=== PATIENT | female | born 1990 | race Caucasian/White ===

== ENCOUNTER 2018-04-09 17:25 | Emergency (ER) | payer BC ==
[2018-04-09] MEDS ORDERED: Lidocaine 1% 50 ML MDV INJECT ONE (17:52)
--- NOTE | 2018-04-09 18:14 | EDM.PDOC ---
ED HPI GENERAL MEDICAL PROBLEM - General Chief Complaint: Bite:Animal, Insect Stated Complaint: ANIMAL BITE Time Seen by Provider: 04/09/18 17:41 Source of Information: Reports: Patient History Limitations: Reports: No Limitations - History of Present Illness INITIAL COMMENTS - FREE TEXT/NARRATIVE: 27-year-old female presents for evaluation and treatment of injuries sustained while breaking up a dog bite. Patient reports that these were her 2 dogs. States they were both pit bulls. This occurred around 1430 today. States that they were fighting and she attempted to break up the fight. She has multiple abrasions and several lacerations to her bilateral hands and forearms. She reports that the dogs immunizations including rabies are up-to-date. She reports that her tetanus is up-to-date. Right Hand Pain Score (Numeric/FACES): 5 - Related Data Allergies Allergy/AdvReac Type Severity Reaction Status Date / Time amoxicillin Allergy Rash Verified 04/09/18 17:40 Sulfa (Sulfonamide Allergy Cannot Verified 04/09/18 17:40 Antibiotics) Remember Home Meds: Home Meds Acetaminophen/HYDROcodone [Keene 325-5 MG] 1 tab PO Q6H PRN #12 tablet 04/09/18 [Rx] Control 1 tab PO DAILY 04/09/18 [History] Doxycycline [Vibramycin] 100 mg PO BID #20 cap 04/09/18 [Rx] metroNIDAZOLE [Flagyl] 500 mg PO Q8H #30 tab 04/09/18 [Rx] ED ROS GENERAL - Review of Systems Review Of Systems: See Below Musculoskeletal: Reports: Hand Pain (bilateral, right > left) Skin: Reports: Wound (bilateral hands and forearms multiple abrasions and laceration) Neurological: Denies: Numbness, Tingling ED EXAM, ANIMAL BITE - Physical Exam Exam: See Below Exam Limited By: No Limitations General Appearance: Alert, WD/WN, No Apparent Distress Respiratory/Chest: No Respiratory Distress Cardiovascular: Normal Peripheral Pulses Peripheral Pulses: 2+: Radial (L), Radial (R) Extremities: Normal Range of Motion (reports pain with ROM of the right hand; ) , Other (approximately 1cm subcutaneous laceartion to the dorsal right hand, approximately 2cm subcutaneous laceration to the anterior medial left proximal forearm ; multiple superficial lacerations and abrasions to the bilteral hands and forearms) Neurological: Alert, Oriented, Normal Cognition Psychiatric: Normal Affect, Normal Mood Skin Exam: Normal Color, Warm/Dry ED ANIMAL BITE PROCEDURES - Laceration/Wound Repair Left Anterior Elbow Lac/Wound Length In cm: 2 Appearance: Subcutaneous, Linear Distal NVT: Neuro & Vascular Intact, No Tendon Injury Anesthetic Type: Local Local Anesthesia - Lidocaine (Xylocaine): 1% Plain Local Anesthetic Volume: 2cc Exploration/Debridement/Repair: Wound Explored, No Foreign Material Found Closed With: Sutures Suture Size: other (5-0) # of Sutures: 3 Suture Type: Nylon, Interrupted, Simple Sterile Dressing Applied: Nurse Tetanus Status Addressed: Yes Complications: No Right Dorsal Hand Lac/Wound Length In cm: 1.5 Appearance: Subcutaneous, Linear Distal NVT: Neuro & Vascular Intact, No Tendon Injury Anesthetic Type: Local Local Anesthesia - Lidocaine (Xylocaine): 1% Plain Local Anesthetic Volume: 2cc Exploration/Debridement/Repair: Wound Explored, No Foreign Material Found Closed With: Sutures Suture Size: other (5-0) # of Sutures: 2 Suture Type: Nylon, Interrupted, Simple Sterile Dressing Applied: Nurse Tetanus Status Addressed: Yes Complications: No Course - Vital Signs Last Recorded V/S: Last Vital Signs Temp 99.3 F 04/09/18 17:36 Pulse 77 04/09/18 17:36 Resp 17 04/09/18 17:36 BP 115/72 04/09/18 17:36 Pulse Ox 98 04/09/18 17:36 - Orders/Labs/Meds Meds: Medications Discontinued Medications Generic Name Dose Route Start Last Admin Trade Name Emily PRN Reason Stop Dose Admin Ibuprofen 800 mg 04/09/18 18:37 04/09/18 18:59 Motrin PO 04/09/18 18:38 800 mg ONETIME ONE Administration Lidocaine HCl 50 ml 04/09/18 17:52 04/09/18 19:00 Xylocaine 1% INJECT 04/09/18 17:53 50 ml ONETIME ONE Administration - Re-Assessments/Exams Free Text/Narrative Re-Assessment/Exam: 04/09/18 19:10 Wound to the right dorsal hand closed with 2 sutures. Wound to the left, proximal, medial anterior forearm closed with 3 sutures. Patient tolerated well. She reports her tetanus is up-to-date. Will put on Flagyl and doxycycline as she has an allergy to amoxicillin. Follow up in the clinic for suture removal and for recheck. She is to return to the ER for symptoms change or worsen. Discharge instructions as documented. Departure - Departure Time of Disposition: 19:10 Disposition: Home, Self-Care 01 Condition: Fair Clinical Impression: Laceration, Dog bite - Discharge Information *PRESCRIPTION DRUG MONITORING PROGRAM REVIEWED*: No *COPY OF PRESCRIPTION DRUG MONITORING REPORT IN PATIENT BALA: No Prescriptions: Acetaminophen/HYDROcodone [Keene 325-5 MG] 1 tab PO Q6H PRN #12 tablet PRN Reason: Pain Doxycycline [Vibramycin] 100 mg PO BID #20 cap metroNIDAZOLE [Flagyl] 500 mg PO Q8H #30 tab Instructions: Animal Bite, [id number], Laceration Care, Adult Referrals: Kirstin Retana PA [Primary Care Provider] - Forms: ED Department Discharge, ED Return to Work/School Form Additional Instructions: taek The doxycycline 1 tab twice a day for 10 days. This medication can cause photosensitivity. Recommend avoiding the sunlight and if you are in the sun make sure you wear sunscreen. Flagyl 1 tab 3 times a day for 10 days. [id number] Tylenol or Motrin as needed for pain. Do not take more than 3200 mg of ibuprofen from all sources in 1 day. Do not take more than 4 g of Tylenol from all sources in 1 day. For pain not relieved by Tylenol or Motrin you may take Keene 1 tab every 6 hours as needed for pain. Keene is habit- forming, take as little as needed to control your pain. Do not drive or operate machinery within 12 hours of taking Keene. There is 325 mg of Tylenol in each Keene tab. Note given for work. Follow-up with your primary care provider in 10 days to have the sutures removed. call [phone] to schedule with Kirstin. Wash the wound with gentle soap and water. Keep covered in situations where the wounds may become dirty or contaminated. Monitor the wound for signs of infection such as increased swelling, pus or redness. Present to the clinic or the ER should these develop. Please return to the ER if your symptoms change or worsen.
[2018-04-09] MEDS ORDERED: Ibuprofen 800 MG Tab PO ONE (18:37)
== END 2018-04-09 19:30 | disposition home or self-care (01) ==
LOC: JD.ED 17:25
DX: S61.452A Open bite of left hand, initial encounter (principal); S61.451A Open bite of right hand, initial encounter; S51.852A Open bite of left forearm, initial encounter; S51.851A Open bite of right forearm, initial encounter; W54.0XXA Bitten by dog, initial encounter; Z88.1 Allergy status to other antibiotic agents; Z88.2 Allergy status to sulfonamides; Z79.899 Other long term (current) drug therapy
CPT/HCPCS: 12002; 99284; A9270; 12001; 99283-25

== ENCOUNTER 2020-08-19 19:32 | Day surgery (SDC) | payer BC, OTHER ==
[2020-08-19] MEDS ORDERED: Ondansetron 4 MG/2 ML SDV IVPUSH ONE (20:23)
[2020-08-19] MEDS ORDERED: HYDROmorphone 0.5 MG/0.5 ML Syringe IVPUSH ONE ×2 (20:23→23:55)
[2020-08-19] MEDS ORDERED: Sodium Chloride 0.9% 1,000 ML IV SCH (20:30)
--- NOTE | 2020-08-19 20:40 | EDM.PDOC ---
ED HPI GENERAL MEDICAL PROBLEM - General Chief Complaint: Genitourinary Problem Stated Complaint: extreme lower pelvic pain sent from [place] Time Seen by Provider: 08/19/20 20:04 Source of Information: Reports: Patient History Limitations: Reports: No Limitations - History of Present Illness INITIAL COMMENTS - FREE TEXT/NARRATIVE: Ms. Lara is a very pleasant 30-year-old woman who now presents to the ED with sharp midline pelvic pain that she states developed this morning. The pain has been relatively constant, although she took some ibuprofen, which helped to reduce the pain for several hours, however, it then became much more severe around 18:00 this evening. She feels better if she is sitting, but worse if she walks, takes a deep breath, or tries to lie supine. No prior similar symptoms. The patient states that she went to the walk-in clinic, but was sent here without any tests being ordered. The patient has not had any vaginal bleeding. She is not on control pills. Her LMP was 07/17/2020. No prior pregnancies. Her last oral intake was around 18:30 this evening. Here in the ED, the patient is found to be hemodynamically stable, afebrile, sat urating 100% on room air. Prior to this morning, the patient denies having a recent fever, chills, sore throat, ear pain, nasal or sinus congestion, cough, dyspnea, chest pain, palpitations, nausea, vomiting, constipation, diarrhea, abdominal pain, urinary symptoms, recent weight gain or weight loss, recent bloody bowel movements or black bowel movements, recent joint aches, headaches, or rashes. The patient's PCP is either JAN Ferrari, or JAN Hansen. She already received an influenza vaccine this season. Pelvic Pain Score (Numeric/FACES): 8 - Related Data Allergies Allergy/AdvReac Type Severity Reaction Status Date / Time amoxicillin Allergy Rash Verified 04/09/18 17:40 Sulfa (Sulfonamide Allergy Cannot Verified 04/09/18 17:40 Antibiotics) Remember Home Meds: Home Meds Control 1 tab PO DAILY 04/09/18 [History] Past Medical History - Past Surgical History HEENT Surgical History: Reports: Oral Surgery (dental extractions) Social & Family History - Tobacco Use Tobacco Use Status *Q: Never Tobacco User - Alcohol Use Alcohol Use History: Yes Alcohol Use Frequency: Rarely - Recreational Drug Use Recreational Drug Use: No - Living Situation & Occupation Living situation: Reports: Single, with Significant Other (Boyfriend) 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 ED EXAM, GENERAL - Physical Exam Exam: See Below Exam Limited By: No Limitations General Appearance: Alert, WD/WN, Mild Distress (appears uncomfortable, pa rticularly when placing supine) Eye Exam: Bilateral Eye: EOMI, Normal Inspection Ears: Normal External Exam, Hearing Grossly Normal Nose: Normal Inspection Throat/Mouth: Normal Inspection, Normal Lips, Normal Voice, No Airway Compromise Head: Atraumatic, Normocephalic Neck: Normal Inspection, Full Range of Motion Respiratory/Chest: No Respiratory Distress, Lungs Clear, Normal Breath Sounds, No Accessory Muscle Use Cardiovascular: Normal Peripheral Pulses, Regular Rate, Rhythm, No Edema, No Gallop, No JVD, No Murmur, No Rub Peripheral Pulses: 3+: Radial (L), Radial (R) GI/Abdominal: Normal Bowel Sounds, Soft, No Organomegaly, No Distention, No Abnormal Bruit, No Mass, Tender (very, to the central pelvis/suprapubic region only, minimal tenderness to the left and right lower quadrants, and no actual tenderness to the upper abdomen, including the right upper quadrant, despite the patient feeling pain in that area.) Back Exam: Normal Inspection, Full Range of Motion. No: CVA Tenderness (L), CVA Tenderness (R) Extremities: Normal Inspection, Normal Range of Motion, No Pedal Edema, Normal Capillary Refill Neurological: Alert, Oriented, Normal Cognition, No Motor/Sensory Deficits Psychiatric: Normal Affect Skin Exam: Warm, Dry, Intact, Normal Color, No Rash Course - Vital Signs Last Recorded V/S: Last Vital Signs Temp 37.1 C 08/19/20 19:48 Pulse 61 08/19/20 19:48 Resp 20 08/19/20 19:48 BP 119/69 08/19/20 19:48 Pulse Ox 100 08/19/20 19:48 Orthostatic Blood Pressure [ 97/56 Sitting] - Orders/Labs/Meds Orders: Active Orders 24 hr Category Date Time Status Admission Status [Patient Status] [ADT] Routine ADT 08/19/20 22:06 Active Orthostatic Vital Signs [RC] STAT Care 08/19/20 20:27 Active Transvaginal Non OB [US] Stat Exams 08/19/20 20:22 Taken TYPE AND SCREEN [BBK] Stat Lab 08/19/20 20:30 Received Sodium Chloride 0.9% [Normal Saline] 1,000 ml Med 08/19/20 21:45 Active IV ONETIME Schedule Procedure [COMM] Stat Oth 08/19/20 22:06 Ordered Medication Orders Sodium Chloride (Normal Saline) 1,000 mls @ 999 mls/hr IV ONETIME ONE Stop: 08/19/20 22:45 Labs: Laboratory Tests 08/19/20 08/19/20 08/19/20 Range/Units 20:02 20:30 20:30 WBC 9.74 (3.98-10.04) K/mm3 RBC 3.85 L (3.98-5.22) M/mm3 Hgb 12.2 (11.2-15.7) gm/dl Hct 36.7 (34.1-44.9) % MCV 95.3 H (79.4-94.8) fl MCH 31.7 (25.6-32.2) pg MCHC 33.2 (32.2-35.5) g/dl RDW Std Deviation 40.9 (36.4-46.3) fL Plt Count 252 (182-369) K/mm3 MPV 9.3 L (9.4-12.3) fl Neutrophils % (Manual) 75 H (40-60) % Band Neutrophils % 0 (0-10) % Lymphocytes % (Manual) 22 (20-40) % Atypical Lymphs % 0 % Monocytes % (Manual) 3 (2-10) % Eosinophils % (Manual) 0 L (0.7-5.8) % Basophils % (Manual) 0 L (0.1-1.2) Platelet Estimate Adequate RBC Morph Comment Normal Sodium 139 (136-145) mEq/L Potassium 3.8 (3.5-5.1) mEq/L Chloride 101 (98-107) mEq/L Carbon Dioxide 27 (21-32) mEq/L Anion Gap 14.8 (5-15) BUN 14 (7-18) mg/dL Creatinine 0.7 (0.55-1.02) mg/dL Est Cr Clr Drug Dosing 92.10 mL/min Estimated GFR (MDRD) > 60 (>60) mL/min BUN/Creatinine Ratio 20.0 H (14-18) Glucose 105 (74-106) mg/dL Calcium 8.9 (8.5-10.1) mg/dL Magnesium 1.9 (1.8-2.4) mg/dl Total Bilirubin 0.3 (0.2-1.0) mg/dL AST 56 H (15-37) U/L ALT 63 H (14-59) U/L Alkaline Phosphatase 60 (46-116) U/L Total Protein 7.1 (6.4-8.2) g/dl Albumin 3.9 (3.4-5.0) g/dl Globulin 3.2 gm/dL Albumin/Globulin Ratio 1.2 (1-2) HCG, Quant mIU/mL Urine Color Yellow (Yellow) Urine Appearance Clear (Clear) Urine pH 7.0 (5.0-8.0) Ur Specific [place] 1.025 (1.005-1.030) Urine Protein Negative (Negative) Urine Glucose (UA) Negative (Negative) Urine Ketones Negative (Negative) Urine Occult Blood Negative (Negative) Urine Nitrite Negative (Negative) Urine Bilirubin Negative (Negative) Urine Urobilinogen 0.2 (0.2-1.0) Ur Leukocyte Esterase Negative (Negative) Urine RBC 0-5 (0-5) /hpf Urine WBC 0-5 (0-5) /hpf Ur Squamous Epith Cells 0-5 (0-5) /hpf Urine Bacteria Few (FEW) /hpf Urine Mucus Few (FEW) /hpf 08/19/20 Range/Units 20:30 WBC (3.98-10.04) K/mm3 RBC (3.98-5.22) M/mm3 Hgb (11.2-15.7) gm/dl Hct (34.1-44.9) % MCV (79.4-94.8) fl MCH (25.6-32.2) pg MCHC (32.2-35.5) g/dl RDW Std Deviation (36.4-46.3) fL Plt Count (182-369) K/mm3 MPV (9.4-12.3) fl Neutrophils % (Manual) (40-60) % Band Neutrophils % (0-10) % Lymphocytes % (Manual) (20-40) % Atypical Lymphs % % Monocytes % (Manual) (2-10) % Eosinophils % (Manual) (0.7-5.8) % Basophils % (Manual) (0.1-1.2) Platelet Estimate RBC Morph Comment Sodium (136-145) mEq/L Potassium (3.5-5.1) mEq/L Chloride (98-107) mEq/L Carbon Dioxide (21-32) mEq/L Anion Gap (5-15) BUN (7-18) mg/dL Creatinine (0.55-1.02) mg/dL Est Cr Clr Drug Dosing mL/min Estimated GFR (MDRD) (>60) mL/min BUN/Creatinine Ratio (14-18) Glucose (74-106) mg/dL Calcium (8.5-10.1) mg/dL Magnesium (1.8-2.4) mg/dl Total Bilirubin (0.2-1.0) mg/dL AST (15-37) U/L ALT (14-59) U/L Alkaline Phosphatase (46-116) U/L Total Protein (6.4-8.2) g/dl Albumin (3.4-5.0) g/dl Globulin gm/dL Albumin/Globulin Ratio (1-2) HCG, Quant 7959.0 mIU/mL Urine Color (Yellow) Urine Appearance (Clear) Urine pH (5.0-8.0) Ur Specific [place] (1.005-1.030) Urine Protein (Negative) Urine Glucose (UA) (Negative) Urine Ketones (Negative) Urine Occult Blood (Negative) Urine Nitrite (Negative) Urine Bilirubin (Negative) Urine Urobilinogen (0.2-1.0) Ur Leukocyte Esterase (Negative) Urine RBC (0-5) /hpf Urine WBC (0-5) /hpf Ur Squamous Epith Cells (0-5) /hpf Urine Bacteria (FEW) /hpf Urine Mucus (FEW) /hpf Meds: Medications Generic Name Dose Route Start Last Admin Trade Name Freq PRN Reason Stop Dose Admin Sodium Chloride 1,000 mls @ 999 mls/hr 08/19/20 21:45 Normal Saline IV 08/19/20 22:45 ONETIME ONE Discontinued Medications Generic Name Dose Route Start Last Admin Trade Name Freq PRN Reason Stop Dose Admin Hydromorphone HCl 0.5 mg 08/19/20 20:23 08/19/20 20:36 Dilaudid IVPUSH 08/19/20 20:24 0.5 mg ONETIME ONE Administration Sodium Chloride 1,000 mls @ 150 mls/hr 08/19/20 20:30 08/19/20 21:53 Normal Saline IV 999 mls/hr ASDIRECTED JOSE Infusion Ondansetron HCl 4 mg 08/19/20 20:23 08/19/20 20:35 Zofran IVPUSH 08/19/20 20:24 4 mg ONETIME ONE Administration - Re-Assessments/Exams Free Text/Narrative Re-Assessment/Exam: 08/19/20 20:26 As above, the patient developed central pelvic pain this morning, which improved for a while after she took some ibuprofen, but then got much worse around 18:00 this evening. Her pain is made much worse if she lies back, radiating to her right upper quadrant and right shoulder. The patient had difficulty lying back for an examination, and I had to reassure her that it would only be for a short time. She has tenderness in her pelvis, but not in her right upper quadrant. I am concerned that she has a ruptured ovarian cyst and have therefore ordered a stat pelvic ultrasound to evaluate, along with orthostatics, several blood tests, and a urinalysis by clean-catch. In the meantime, the patient will be given IV Dilaudid, IV Zofran, and IV fluid. 08/19/20 21:43 I am told by Olivia SANCHEZ that the patient was too uncomfortable to lie supine. Her BP is 97/56 with a HR of 73 while sitting. She was apparently too lightheaded to stand up. Her CBC is unremarkable. Her CMP is remarkable for an AST/ALT slightly elevated at 56/63, respectively, with the remainder of her CMP being unremarkable. Her magnesium level is within normal limits at 1.9. Her quantitative hCG is elevated at 7959. Results of her pelvic ultrasound are still pending. Based on the above, I am very concerned about a ruptured ectopic . I have canceled the NS at 150 mL/h and ordered an NS bolus. I will also order a type and screen. Because there is a good chance that the patient will need to go to the OR, I ordered a swab for the SARS-CoV-2 virus, however, I am notified by Olivia SANCHEZ that the patient was tested just yesterday, 08/18/2020, with a negative test result, and documentation of such on her phone. Under these circumstances, I don't believe we need to repeat the test. 08/19/20 21:57 Transvaginal ultrasound is read by [facility] as "No sonographic evidence of ovarian torsion. "There appears to be a large confluent soft tissue lesion posterior to the uterus extending into the adnexal spaces bilaterally measuring approximately 9.3 x 3.4 x 8.6 cm. This precludes confident detection and characterization of the ovaries. Recommend contrast-enhanced MRI of the pelvis for further evaluation." 08/19/20 22:[address] Santos at 21:58. She agrees that the patient's presentation is concerning for a ruptured ectopic . She asked that we call the OR crew in. Coincidentally, Dr. De Leon is here in the ED for a similar situation witha different patient, and will likely need to take his patient to the OR, as well. At present, Dr. Santos asked that we make the OR charge nurse aware that a second Occupational Health Professional may need to be called in, but that decision will be made after she evaluates the patient. 08/19/20 22:29 Dr. Santos has evaluated the patient and intends to take her to the operating room. Departure - Departure Time of Disposition: 22:30 Disposition: Admitted As Inpatient 65 Condition: Fair Clinical Impression: Ruptured ectopic - Discharge Information *PRESCRIPTION DRUG MONITORING PROGRAM REVIEWED*: Not Applicable *COPY OF PRESCRIPTION DRUG MONITORING REPORT IN PATIENT BALA: Not Applicable Sepsis Event Note (ED) - Evaluation Sepsis Screening Result: No Definite Risk - Focused Exam Vital Signs: Vital Signs Temp Pulse Resp BP Pulse Ox 08/19/20 19:48 37.1 C 61 20 119/69 100 - My Orders Last 24 Hours: My Active Orders 08/19/20 20:22 Transvaginal Non OB [US] Stat 08/19/20 20:27 Orthostatic Vital Signs [RC] STAT 08/19/20 20:30 TYPE AND SCREEN [BBK] Stat 08/19/20 21:45 Sodium Chloride 0.9% [Normal Saline] 1,000 ml IV ONETIME - Assessment/Plan Last 24 Hours: My Active Orders 08/19/20 20:22 Transvaginal Non OB [US] Stat 08/19/20 20:27 Orthostatic Vital Signs [RC] STAT 08/19/20 20:30 TYPE AND SCREEN [BBK] Stat 08/19/20 21:45 Sodium Chloride 0.9% [Normal Saline] 1,000 ml IV ONETIME
[2020-08-19] MEDS ORDERED: Sodium Chloride 0.9% 1,000 ML IV ONE (21:45)
[2020-08-19] MEDS ORDERED: ceFAZolin 2 GM in Premix Bag 1 BAG IV ONE (22:43)
--- NOTE | 2020-08-19 22:43 | PCM.HP.2 ---
H&P History of Present Illness - General Date of Service: 08/19/20 Admit Problem/Dx: Admission Diagnosis/Problem Admission Diagnosis/Problem Ectopic Source of Information: Patient History Limitations: Reports: No Limitations - History of Present Illness Initial Comments - Free Text/Narative: Patient is a 30 y/o who presented to the ER today with one day fo abdominal pain. Prior to today patient did not realize she was . 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 Not using a method of contraception. Noted pain this AM which then resolved slightly, then worsened around noon. Tried to manage on her own, but this PM pain much worse. ER evaluation has shown hCG . 7,000 and TVUS with "mass posterior to uterus" and no findings of IUP. Pelvic Pain Score (Numeric/FACES): 8 - Related Data Allergies/Adverse Reactions: Allergies Allergy/AdvReac Type Severity Reaction Status Date / Time amoxicillin Allergy Rash Verified 04/09/18 17:40 Sulfa (Sulfonamide Allergy Cannot Verified 04/09/18 17:40 Antibiotics) Remember Home Medications: Home Meds Control 1 tab PO DAILY 04/09/18 [History] Past Medical History - Past Health History Medical/Surgical History: Denies Medical/Surgical History - Past Surgical History HEENT Surgical History: Reports: Oral Surgery (dental extractions) Social & Family History - Family History Family Medical History: No Pertinent Family History - Tobacco Use Tobacco Use Status *Q: Never Tobacco User Second Hand Smoke Exposure: No - Caffeine Use Caffeine Use: Reports: None - Alcohol Use Alcohol Use History: No - Recreational Drug Use Recreational Drug Use: No - Living Situation & Occupation Living situation: Reports: Single, with Significant Other (Boyfriend) 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[employer]) H&P Review of Systems - Review of Systems: Review Of Systems: See Below General: Reports: No Symptoms Pulmonary: Reports: No Symptoms Cardiovascular: Reports: No Symptoms Gastrointestinal: Reports: Abdominal Pain, Anorexia Genitourinary: Reports: No Symptoms Musculoskeletal: Reports: No Symptoms Psychiatric: Reports: No Symptoms Neurological: Reports: No Symptoms Exam - Exam Exam: See Below - Vital Signs Vital Signs: Last Vital Signs Temp 37.1 C 08/19/20 19:48 Pulse 61 08/19/20 19:48 Resp 20 08/19/20 19:48 BP 119/69 08/19/20 19:48 Pulse Ox 100 08/19/20 19:48 Orthostatic Blood Pressure [ 97/56 Sitting] Weight: 63.957 kg - Exam General: Alert, Oriented, Cooperative, Mild Distress Lungs: Clear to Auscultation Cardiovascular: Regular Rate GI/Abdominal Exam: Normal Bowel Sounds, Tender (mostly in lower abdomen over bladder ). No: Guarding Extremities: Normal Inspection Skin: Warm, Dry, Intact - Patient Data Lab Results Last 24 hrs: Laboratory Results - last 24 hr 08/19/20 08/19/20 08/19/20 Range/Units 20:02 20:30 20:30 WBC 9.74 (3.98-10.04) K/mm3 RBC 3.85 L (3.98-5.22) M/mm3 Hgb 12.2 (11.2-15.7) gm/dl Hct 36.7 (34.1-44.9) % MCV 95.3 H (79.4-94.8) fl MCH 31.7 (25.6-32.2) pg MCHC 33.2 (32.2-35.5) g/dl RDW Std Deviation 40.9 (36.4-46.3) fL Plt Count 252 (182-369) K/mm3 MPV 9.3 L (9.4-12.3) fl Neutrophils % (Manual) 75 H (40-60) % Band Neutrophils % 0 (0-10) % Lymphocytes % (Manual) 22 (20-40) % Atypical Lymphs % 0 % Monocytes % (Manual) 3 (2-10) % Eosinophils % (Manual) 0 L (0.7-5.8) % Basophils % (Manual) 0 L (0.1-1.2) Platelet Estimate Adequate RBC Morph Comment Normal Sodium 139 (136-145) mEq/L Potassium 3.8 (3.5-5.1) mEq/L Chloride 101 (98-107) mEq/L Carbon Dioxide 27 (21-32) mEq/L Anion Gap 14.8 (5-15) BUN 14 (7-18) mg/dL Creatinine 0.7 (0.55-1.02) mg/dL Est Cr Clr Drug Dosing 92.10 mL/min Estimated GFR (MDRD) > 60 (>60) mL/min BUN/Creatinine Ratio 20.0 H (14-18) Glucose 105 (74-106) mg/dL Calcium 8.9 (8.5-10.1) mg/dL Magnesium 1.9 (1.8-2.4) mg/dl Total Bilirubin 0.3 (0.2-1.0) mg/dL AST 56 H (15-37) U/L ALT 63 H (14-59) U/L Alkaline Phosphatase 60 (46-116) U/L Total Protein 7.1 (6.4-8.2) g/dl Albumin 3.9 (3.4-5.0) g/dl Globulin 3.2 gm/dL Albumin/Globulin Ratio 1.2 (1-2) HCG, Quant mIU/mL Urine Color Yellow (Yellow) Urine Appearance Clear (Clear) Urine pH 7.0 (5.0-8.0) Ur Specific [place] 1.025 (1.005-1.030) Urine Protein Negative (Negative) Urine Glucose (UA) Negative (Negative) Urine Ketones Negative (Negative) Urine Occult Blood Negative (Negative) Urine Nitrite Negative (Negative) Urine Bilirubin Negative (Negative) Urine Urobilinogen 0.2 (0.2-1.0) Ur Leukocyte Esterase Negative (Negative) Urine RBC 0-5 (0-5) /hpf Urine WBC 0-5 (0-5) /hpf Ur Squamous Epith Cells 0-5 (0-5) /hpf Urine Bacteria Few (FEW) /hpf Urine Mucus Few (FEW) /hpf 08/19/20 Range/Units 20:30 WBC (3.98-10.04) K/mm3 RBC (3.98-5.22) M/mm3 Hgb (11.2-15.7) gm/dl Hct (34.1-44.9) % MCV (79.4-94.8) fl MCH (25.6-32.2) pg MCHC (32.2-35.5) g/dl RDW Std Deviation (36.4-46.3) fL Plt Count (182-369) K/mm3 MPV (9.4-12.3) fl Neutrophils % (Manual) (40-60) % Band Neutrophils % (0-10) % Lymphocytes % (Manual) (20-40) % Atypical Lymphs % % Monocytes % (Manual) (2-10) % Eosinophils % (Manual) (0.7-5.8) % Basophils % (Manual) (0.1-1.2) Platelet Estimate RBC Morph Comment Sodium (136-145) mEq/L Potassium (3.5-5.1) mEq/L Chloride (98-107) mEq/L Carbon Dioxide (21-32) mEq/L Anion Gap (5-15) BUN (7-18) mg/dL Creatinine (0.55-1.02) mg/dL Est Cr Clr Drug Dosing mL/min Estimated GFR (MDRD) (>60) mL/min BUN/Creatinine Ratio (14-18) Glucose (74-106) mg/dL Calcium (8.5-10.1) mg/dL Magnesium (1.8-2.4) mg/dl Total Bilirubin (0.2-1.0) mg/dL AST (15-37) U/L ALT (14-59) U/L Alkaline Phosphatase (46-116) U/L Total Protein (6.4-8.2) g/dl Albumin (3.4-5.0) g/dl Globulin gm/dL Albumin/Globulin Ratio (1-2) HCG, Quant 7959.0 mIU/mL Urine Color (Yellow) Urine Appearance (Clear) Urine pH (5.0-8.0) Ur Specific [place] (1.005-1.030) Urine Protein (Negative) Urine Glucose (UA) (Negative) Urine Ketones (Negative) Urine Occult Blood (Negative) Urine Nitrite (Negative) Urine Bilirubin (Negative) Urine Urobilinogen (0.2-1.0) Ur Leukocyte Esterase (Negative) Urine RBC (0-5) /hpf Urine WBC (0-5) /hpf Ur Squamous Epith Cells (0-5) /hpf Urine Bacteria (FEW) /hpf Urine Mucus (FEW) /hpf Result Diagrams: 08/19/20 20:30 08/19/20 20:30 Sepsis Event Note - Evaluation Sepsis Screening Result: No Definite Risk - Focused Exam Vital Signs: Vital Signs Temp Pulse Resp BP Pulse Ox 08/19/20 19:48 37.1 C 61 20 119/69 100 - Problem List (1) Ruptured ectopic SNOMED Code(s): 74626437 ICD Code: O00.90 - UNSPECIFIED ECTOPIC WITHOUT INTRAUTERINE Status: Acute Current Visit: Yes Problem List Initiated/Reviewed/Updated: Yes Orders Last 24hrs: Active Orders 24 hr Category Date Time Status Admission Status [Patient Status] [ADT] Routine ADT 08/19/20 22:06 Active Orthostatic Vital Signs [RC] STAT Care 08/19/20 20:27 Active Transvaginal Non OB [US] Stat Exams 08/19/20 20:22 Taken TYPE AND SCREEN [BBK] Stat Lab 08/19/20 20:30 Received Sodium Chloride 0.9% [Normal Saline] 1,000 ml Med 08/19/20 21:45 Active IV ONETIME Schedule Procedure [COMM] Stat Oth 08/19/20 22:06 Ordered Medication Orders Sodium Chloride (Normal Saline) 1,000 mls @ 999 mls/hr IV ONETIME ONE Stop: 08/19/20 22:45 Assessment/Plan Comment:: Patient with likely ectopic given HCG value and US findings of now IUP. Recommend diagnostic laparoscopy, removal of ectopic. Discussed possibility of salpingectomy, oophorectomy, and even in rare cases hysterectomy. Also reviewed possibility of conversion to open procedure. She expressed understanding. Consent reviewed/signed * Labs done, T&S pending * Diana BACHOR * OR crew notified
[2020-08-19] MEDS ORDERED: Lactated Ringers 1,000 ML IV SCH (23:00)
--- NOTE | 2020-08-19 23:00 | PCM.PREANE ---
Preanesthetic Assessment - Procedure Proposed Procedure: laparoscopy - Anesthesia/Transfusion/Family Hx Anesthesia History: Prior Anesthesia Without Reaction Family History of Anesthesia Reaction: No Transfusion History: No Prior Transfusion(s) - Review of Systems General: Weakness, Chills (started 6 pm) Pulmonary: No Symptoms Cardiovascular: No Symptoms Gastrointestinal: Abdominal Pain (this am about 8 am), Nausea Neurological: No Symptoms Other: Reports: None - Physical Assessment NPO Status Date: 08/19/20 NPO Status Time: 18:00 Vital Signs: Last Vital Signs Temp 98.7 F 08/19/20 19:48 Pulse 61 08/19/20 19:48 Resp 20 08/19/20 19:48 BP 119/69 08/19/20 19:48 Pulse Ox 100 08/19/20 19:48 Orthostatic Blood Pressure [ 97/56 Sitting] Height: 5 ft 2 in Weight: 63.957 kg ASA Class: 2E Mental Status: Alert & Oriented x3 Airway Class: Mallampati = 1 Dentition: Reports: Normal Dentition Thyro-Mental Finger Breadths: 3 Mouth Opening Finger Breadths: 3 ROM/Head Extension: Full Lungs: Clear to Auscultation, Normal Respiratory Effort Cardiovascular: Regular Rate, Regular Rhythm - Lab Values: Laboratory Last Values WBC 9.74 K/mm3 (3.98-10.04) 08/19/20 20:30 RBC 3.85 M/mm3 (3.98-5.22) L 08/19/20 20:30 Hgb 12.2 gm/dl (11.2-15.7) 08/19/20 20:30 Hct 36.7 % (34.1-44.9) 08/19/20 20:30 MCV 95.3 fl (79.4-94.8) H 08/19/20 20:30 MCH 31.7 pg (25.6-32.2) 08/19/20 20:30 MCHC 33.2 g/dl (32.2-35.5) 08/19/20 20:30 RDW Std Deviation 40.9 fL (36.4-46.3) 08/19/20 20:30 Plt Count 252 K/mm3 (182-369) 08/19/20 20:30 MPV 9.3 fl (9.4-12.3) L 08/19/20 20:30 Neutrophils % (Manual) 75 % (40-60) H 08/19/20 20:30 Band Neutrophils % 0 % (0-10) 08/19/20 20:30 Lymphocytes % (Manual) 22 % (20-40) 08/19/20 20:30 Atypical Lymphs % 0 % 08/19/20 20:30 Monocytes % (Manual) 3 % (2-10) 08/19/20 20:30 Eosinophils % (Manual) 0 % (0.7-5.8) L 08/19/20 20:30 Basophils % (Manual) 0 (0.1-1.2) L 08/19/20 20:30 Platelet Estimate Adequate 08/19/20 20:30 RBC Morph Comment Normal 08/19/20 20:30 Sodium 139 mEq/L (136-145) 08/19/20 20:30 Potassium 3.8 mEq/L (3.5-5.1) 08/19/20 20:30 Chloride 101 mEq/L (98-107) 08/19/20 20:30 Carbon Dioxide 27 mEq/L (21-32) 08/19/20 20:30 Anion Gap 14.8 (5-15) 08/19/20 20:30 BUN 14 mg/dL (7-18) 08/19/20 20:30 Creatinine 0.7 mg/dL (0.55-1.02) 08/19/20 20:30 Est Cr Clr Drug Dosing 92.10 mL/min 08/19/20 20:30 Estimated GFR (MDRD) > 60 mL/min (>60) 08/19/20 20:30 BUN/Creatinine Ratio 20.0 (14-18) H 08/19/20 20:30 Glucose 105 mg/dL (74-106) 08/19/20 20:30 Calcium 8.9 mg/dL (8.5-10.1) 08/19/20 20:30 Magnesium 1.9 mg/dl (1.8-2.4) 08/19/20 20:30 Total Bilirubin 0.3 mg/dL (0.2-1.0) 08/19/20 20:30 AST 56 U/L (15-37) H 08/19/20 20:30 ALT 63 U/L (14-59) H 08/19/20 20:30 Alkaline Phosphatase 60 U/L (46-116) 08/19/20 20:30 Total Protein 7.1 g/dl (6.4-8.2) 08/19/20 20: Albumin 3.9 g/dl (3.4-5.0) 08/19/20 20: Globulin 3.2 gm/dL 08/19/20 20: Albumin/Globulin Ratio 1.2 (1-2) 08/19/20 20: HCG, Quant 7959.0 mIU/mL 08/19/20 20: Urine Color Yellow (Yellow) 08/19/20 20: Urine Appearance Clear (Clear) 08/19/20 20: Urine pH 7.0 (5.0-8.0) 08/19/20 20: Ur Specific [place] 1.025 (1.005-1.030) 08/19/20 20: Urine Protein Negative (Negative) 08/19/20 20: Urine Glucose (UA) Negative (Negative) 08/19/20 20: Urine Ketones Negative (Negative) 08/19/20 20: Urine Occult Blood Negative (Negative) 08/19/20 20: Urine Nitrite Negative (Negative) 08/19/20 20: Urine Bilirubin Negative (Negative) 08/19/20 20: Urine Urobilinogen 0.2 (0.2-1.0) 08/19/20 20: Ur Leukocyte Esterase Negative (Negative) 08/19/20 20:02 Urine RBC 0-5 /hpf (0-5) 08/19/20 20: Urine WBC 0-5 /hpf (0-5) 08/19/20 20:02 Ur Squamous Epith Cells 0-5 /hpf (0-5) 08/19/20 20: Urine Bacteria Few /hpf (FEW) 08/19/20 20:02 Urine Mucus Few /hpf (FEW) 08/19/20 20:02 Blood Type O POSITIVE 08/19/20 20:30 - Allergies Allergies/Adverse Reactions: Allergies Allergy/AdvReac Type Severity Reaction Status Date / Time amoxicillin Allergy Rash Verified 04/09/18 17:40 Sulfa (Sulfonamide Allergy Cannot Verified 04/09/18 17:40 Antibiotics) Remember - Blood Blood Available: No - Acknowledgements Anesthesia Type Planned: General Anesthesia Pt an Appropriate Candidate for the Planned Anesthesia: Yes Alternatives and Risks of Anesthesia Discussed w Pt/Guardian: Yes Pt/Guardian Understands and Agrees with Anesthesia Plan: Yes PreAnesthesia Questionnaire - Past Health History Medical/Surgical History: Denies Medical/Surgical History Cardiovascular History: Reports: None Respiratory History: Reports: None Gastrointestinal History: Reports: None - Past Surgical History HEENT Surgical History: Reports: Oral Surgery (dental extractions) - SUBSTANCE USE Tobacco Use Status *Q: Never Tobacco User Tobacco Use Within Last Twelve Months: No Second Hand Smoke Exposure: No Days Per Week of Alcohol Use: 0 Recreational Drug Use History: No - HOME MEDS Home Medications: Home Meds Control 1 tab PO DAILY 04/09/18 [History] - CURRENT (IN HOUSE) MEDS Current Meds: Current Medications Cefazolin Sodium/Dextrose 2 gm (/ Premix) 50 mls @ 100 mls/hr IV ONETIME ONE Stop: 08/19/20 23:12 Lactated Ringer's (Ringers, Lactated) 1,000 mls @ 75 mls/hr IV ASDIRECTED [facility] Discontinued Medications Hydromorphone HCl (Dilaudid) 0.5 mg IVPUSH ONETIME ONE Stop: 08/19/20 20:24 Last Admin: 08/19/20 20:36 Dose: 0.5 mg Documented by: Sodium Chloride (Normal Saline) 1,000 mls @ 150 mls/hr IV ASDIRECTED [facility] Last Infusion: 08/19/20 21:53 Dose: 999 mls/hr Documented by: Sodium Chloride (Normal Saline) 1,000 mls @ 999 mls/hr IV ONETIME ONE Stop: 08/19/20 22:45 Ondansetron HCl (Zofran) 4 mg IVPUSH ONETIME ONE Stop: 08/19/20 20:24 Last Admin: 08/19/20 20:35 Dose: 4 mg Documented by:
[2020-08-19] MEDS ORDERED: Rocuronium 50 MG/5 ML Vial ONE (23:36)
[2020-08-19] MEDS ORDERED: Ondansetron 4 MG/2 ML SDV ONE (23:36)
[2020-08-19] MEDS ORDERED: fentaNYL 250 MCG/5 ML SDV ONE (23:36)
[2020-08-19] MEDS ORDERED: Midazolam 1 MG/ML 2 ML SDV ONE (23:36)
[2020-08-19] MEDS ORDERED: Propofol 200 MG/20 ML SDV ONE (23:36)
[2020-08-19] MEDS ORDERED: Lidocaine 1% 4 ML ONE (23:36)
[2020-08-19] MEDS ORDERED: HYDROmorphone 0.5 MG/0.5 ML Syringe ONE (23:56)
--- NOTE | 2020-08-20 00:04 | PCM.OPNOTE ---
- General Post-Op/Procedure Note Date of Surgery/Procedure: 08/20/20 Operative Procedure(s): Diagnostic laparoscopy. Removal of residual right ovarian ectopic . Evacuation of hemoperitoneum Findings: Initial abdominal evaluation with large amount of hemoperitoneum (about 1L evacuated). After evacuation of hemoperitoneum able to see normal appearance of the uterus and left fallopian tube and ovary. Right fallopian tube minimally edematous. At end of right ovary appears to be a site of of a ruptured ovarian ectopic. Mostly hemostatic currently Pre Op Diagnosis: Ruptured ectopic Post-Op Diagnosis: Same Anesthesia Technique: General ET Tube Primary Surgeon: Marilyn Santos Secondary Surgeon: Benjamín De Leon Anesthesia Provider: Kam Montanez Pathology: Tissue excised from right ovary sent to pathology for further evaluation Fluid Replacement, Intraop: 1,500 Output, Urine Amount: 200 EBL in mLs: 1,000 Complications: None Condition: Good Free Text/Narrative:: The risks, benefits, indications, potential complications, and alternatives were explained to the patient and informed consent obtained. The patient was taken to the Operating Room where general anesthesia was induced without complication. The patient was placed in dorsal lithotomy with Monty Stirrups. The patient was then prepped and draped in the usual sterile fashion. A sponge stick was placed into the vagina. Attention was then turned to the patients abdomen where a Veress needle was inserted into the abdomen while tenting the abdominal wall. Intraabdominal placement was confirmed with a drop test using a saline filled syringe and low intraabdominal pressure on low flow. A vertical infraumbilical incision was made in the umbilical fold and the 5 mm blunt trocar was inserted with the 5 mm laparoscope inserted through the trocar for direct visualization of abdominal entry through the clear view lens. Once intraabdominal placement was confirmed, the blunt obturator was removed and the laparoscope was inserted and exam of the patient's abdomen revealed the findings detailed above. A pneumoperitoneum was obtained with C02 gas. Attention was turned to placement of the accessory ports. Both ports were placed approximately 10 cm lateral and 2-3 cm below the level of the first incision. A 5 mm skin incision was made in the left lower quadrant and a 5 mm trocar was inserted into the abdomen under direct visualization with care to avoid the abdominal wall vasculature. A second port was placed through a 10 mm skin incision in the right lower quadrant. A 10 mm trocar was inserted into the abdomen under direct visualization with care to avoid the abdominal wall vasculature. Irrigation used to remove large amount of blood in the abdomen. With inspection of pelvis afterwards site of what appeared to be a ruptured ovarian ectopic noted on patient's right. Ligasure was used to cauterize and transect this tissue away from normal ovarian tissue. Underlying ovarian tissue appeared normal. Right fallopian tube very minimally edematous, but thought to be more reactionary than site of ectopic. Given patient desire for fertility this fallopian tube was left in place. Left fallopian tube and ovary completely normal. Copious suction/irritation then performed of patient's abdomen. The right lower quadrant trocar was removed under direct visualization. The Luiz Epperson inlet closer device was inserted and an 0 Vicryl suture was placed to reapproximate the fascia of this port site. Hemostasis noted. The left lower quadrant trocar was then removed. The pneumoperitoneum was allowed to escape. The umbilical trocar and the camera were removed from the abdomen. 0.25% Marcaine was injected into the subcutaneous tissue of all skin incisions for local anesthesia. The skin incisions were re-approximated with 4-0 Monocryl in a running subcuticular fashion. Dermabond was also used to seal the incisions. The vaginal instruments were all removed. All sponge, lap, needle, and instrument counts were correct x 2. The patient tolerated the procedure well and there were no complications.
[2020-08-20] MEDS ORDERED: Bupivacaine 0.5% 30 ML SDV ONE (00:16)
[2020-08-20] MEDS ORDERED: Dexamethasone 4 MG/ML 5 ML MDV ONE (00:36)
[2020-08-20] MEDS ORDERED: Lactated Ringers 1,000 ML ONE (00:53)
[2020-08-20] MEDS ORDERED: Ondansetron 4 MG/2 ML SDV IVPUSH PRN ×2 (00:55→01:44)
[2020-08-20] MEDS ORDERED: HYDROmorphone 0.5 MG/0.5 ML Syringe IVPUSH PRN (00:55)
[2020-08-20] MEDS ORDERED: fentaNYL 100 MCG/2 ML SDV IVPUSH PRN (00:55)
[2020-08-20] MEDS ORDERED: Ketorolac 30 MG/ML SDV ONE (01:20)
[2020-08-20] MEDS ORDERED: Acetaminophen/oxyCODONE 325-5 MG Tab PO PRN ×2 (01:44)
--- NOTE | 2020-08-20 01:45 | PCM.POSTAN ---
POST ANESTHESIA ASSESSMENT - MENTAL STATUS Mental Status: Alert, Oriented - VITAL SIGNS Vital Signs: Last Vital Signs Temp 98.7 F 08/19/20 19:48 Pulse 61 08/19/20 19:48 Resp 20 08/19/20 19:48 BP 119/69 08/19/20 19:48 Pulse Ox 100 08/19/20 19:48 Orthostatic Blood Pressure [ 97/56 Sitting] 0140 100% 87 15 98.0 118/75 - RESPIRATORY Respiratory Status: Respiratory Rate WNL, Airway Patent, O2 Saturation Stable, Supplemental Oxygen - CARDIOVASCULAR CV Status: Pulse Rate WNL, Blood Pressure Stable - GASTROINTESTINAL GI Status: No Symptoms - PAIN Pain Score: 0 - POST OP HYDRATION Hydration Status: Adequate & Stable
--- NOTE | 2020-08-20 02:05 | PCM48HPAN ---
Post Anesthesia Note - EVALUATION WITHIN 48HRS OF ANESTHETIC Vital Signs in Normal Range: Yes Patient Participated in Evaluation: Yes Respiratory Function Stable: Yes Airway Patent: Yes Cardiovascular Function Stable: Yes Hydration Status Stable: Yes Pain Control Satisfactory: Yes Nausea and Vomiting Control Satisfactory: Yes Mental Status Recovered: Yes Vital Signs: Last Vital Signs Temp 97.3 F 08/20/20 01:54 Pulse 61 08/19/20 19:48 Resp 11 L 08/20/20 01:54 BP 108/54 L 08/20/20 01:54 Pulse Ox 100 08/20/20 01:54 Orthostatic Blood Pressure [ 97/56 Sitting] - COMMENTS/OBSERVATIONS Free Text/Narrative:: rests with no complaints
[2020-08-20] MEDS ORDERED: Ketorolac 15 MG/ML SDV IVPUSH SCH (08:00)
--- NOTE | 2020-08-20 08:01 | PCM.SURGPN ---
- General Info Date of Service: 08/20/20 POD#: 0 Functional Status: Reports: Pain Controlled, Ambulating, Urinating - Review of Systems General: Reports: No Symptoms Pulmonary: Reports: No Symptoms Cardiovascular: Reports: No Symptoms Gastrointestinal: Reports: Abdominal Pain (minimal residual pain per patient report ) Genitourinary: Reports: No Symptoms Musculoskeletal: Reports: No Symptoms Neurological: Reports: No Symptoms - Patient Data Vitals - Most Recent: Last Vital Signs Temp 37.6 C 08/20/20 05:00 Pulse 61 08/19/20 19:48 Resp 14 08/20/20 05:00 BP 99/51 L 08/20/20 05:00 Pulse Ox 100 08/20/20 05:00 Orthostatic Blood Pressure [ 97/56 Sitting] Weight - Most Recent: 63.957 kg I&O - Last 24 Hours: Intake & Output 08/19/20 08/20/20 08/20/20 22:59 06:59 14:59 Intake Total 300 Output Total 200 Balance 100 Lab Results Last 24 Hrs: Laboratory Results - last 24 hr 08/19/20 08/19/20 08/19/20 Range/Units 20:02 20:30 20:30 WBC 9.74 (3.98-10.04) K/mm3 RBC 3.85 L (3.98-5.22) M/mm3 Hgb 12.2 (11.2-15.7) gm/dl Hct 36.7 (34.1-44.9) % MCV 95.3 H (79.4-94.8) fl MCH 31.7 (25.6-32.2) pg MCHC 33.2 (32.2-35.5) g/dl RDW Std Deviation 40.9 (36.4-46.3) fL Plt Count 252 (182-369) K/mm3 MPV 9.3 L (9.4-12.3) fl Neutrophils % (Manual) 75 H (40-60) % Band Neutrophils % 0 (0-10) % Lymphocytes % (Manual) 22 (20-40) % Atypical Lymphs % 0 % Monocytes % (Manual) 3 (2-10) % Eosinophils % (Manual) 0 L (0.7-5.8) % Basophils % (Manual) 0 L (0.1-1.2) Platelet Estimate Adequate RBC Morph Comment Normal Sodium 139 (136-145) mEq/L Potassium 3.8 (3.5-5.1) mEq/L Chloride 101 (98-107) mEq/L Carbon Dioxide 27 (21-32) mEq/L Anion Gap 14.8 (5-15) BUN 14 (7-18) mg/dL Creatinine 0.7 (0.55-1.02) mg/dL Est Cr Clr Drug Dosing 92.10 mL/min Estimated GFR (MDRD) > 60 (>60) mL/min BUN/Creatinine Ratio 20.0 H (14-18) Glucose 105 (74-106) mg/dL Calcium 8.9 (8.5-10.1) mg/dL Magnesium 1.9 (1.8-2.4) mg/dl Total Bilirubin 0.3 (0.2-1.0) mg/dL AST 56 H (15-37) U/L ALT 63 H (14-59) U/L Alkaline Phosphatase 60 (46-116) U/L Total Protein 7.1 (6.4-8.2) g/dl Albumin 3.9 (3.4-5.0) g/dl Globulin 3.2 gm/dL Albumin/Globulin Ratio 1.2 (1-2) HCG, Quant mIU/mL Urine Color Yellow (Yellow) Urine Appearance Clear (Clear) Urine pH 7.0 (5.0-8.0) Ur Specific [place] 1.025 (1.005-1.030) Urine Protein Negative (Negative) Urine Glucose (UA) Negative (Negative) Urine Ketones Negative (Negative) Urine Occult Blood Negative (Negative) Urine Nitrite Negative (Negative) Urine Bilirubin Negative (Negative) Urine Urobilinogen 0.2 (0.2-1.0) Ur Leukocyte Esterase Negative (Negative) Urine RBC 0-5 (0-5) /hpf Urine WBC 0-5 (0-5) /hpf Ur Squamous Epith Cells 0-5 (0-5) /hpf Urine Bacteria Few (FEW) /hpf Urine Mucus Few (FEW) /hpf Blood Type Gel Antibody Screen 08/19/20 08/19/20 Range/Units 20:30 20:30 WBC (3.98-10.04) K/mm3 RBC (3.98-5.22) M/mm3 Hgb (11.2-15.7) gm/dl Hct (34.1-44.9) % MCV (79.4-94.8) fl MCH (25.6-32.2) pg MCHC (32.2-35.5) g/dl RDW Std Deviation (36.4-46.3) fL Plt Count (182-369) K/mm3 MPV (9.4-12.3) fl Neutrophils % (Manual) (40-60) % Band Neutrophils % (0-10) % Lymphocytes % (Manual) (20-40) % Atypical Lymphs % % Monocytes % (Manual) (2-10) % Eosinophils % (Manual) (0.7-5.8) % Basophils % (Manual) (0.1-1.2) Platelet Estimate RBC Morph Comment Sodium (136-145) mEq/L Potassium (3.5-5.1) mEq/L Chloride (98-107) mEq/L Carbon Dioxide (21-32) mEq/L Anion Gap (5-15) BUN (7-18) mg/dL Creatinine (0.55-1.02) mg/dL Est Cr Clr Drug Dosing mL/min Estimated GFR (MDRD) (>60) mL/min BUN/Creatinine Ratio (14-18) Glucose (74-106) mg/dL Calcium (8.5-10.1) mg/dL Magnesium (1.8-2.4) mg/dl Total Bilirubin (0.2-1.0) mg/dL AST (15-37) U/L ALT (14-59) U/L Alkaline Phosphatase (46-116) U/L Total Protein (6.4-8.2) g/dl Albumin (3.4-5.0) g/dl Globulin gm/dL Albumin/Globulin Ratio (1-2) HCG, Quant 7959.0 mIU/mL Urine Color (Yellow) Urine Appearance (Clear) Urine pH (5.0-8.0) Ur Specific [place] (1.005-1.030) Urine Protein (Negative) Urine Glucose (UA) (Negative) Urine Ketones (Negative) Urine Occult Blood (Negative) Urine Nitrite (Negative) Urine Bilirubin (Negative) Urine Urobilinogen (0.2-1.0) Ur Leukocyte Esterase (Negative) Urine RBC (0-5) /hpf Urine WBC (0-5) /hpf Ur Squamous Epith Cells (0-5) /hpf Urine Bacteria (FEW) /hpf Urine Mucus (FEW) /hpf Blood Type O POSITIVE Gel Antibody Screen Negative Med Orders - Current: Current Medications Fentanyl (Sublimaze) 50 mcg IVPUSH Q5M PRN PRN Reason: Pain Hydromorphone HCl (Dilaudid) 0.5 mg IVPUSH Q10M PRN PRN Reason: Pain (severe 7-10) Lactated Ringer's (Ringers, Lactated) 1,000 mls @ 75 mls/hr IV ASDIRECTED [facility] Last Admin: 08/19/20 23:02 Dose: 75 mls/hr Documented by: Ketorolac Tromethamine (Toradol) 30 mg IVPUSH Q6H [facility] Stop: 08/25/20 01:45 Ondansetron HCl (Zofran) 4 mg IVPUSH ONETIME PRN PRN Reason: Nausea/Vomiting Ondansetron HCl (Zofran) 4 mg IVPUSH Q4H PRN PRN Reason: Nausea/Vomiting Oxycodone/Acetaminophen (Percocet 325-5 Mg) 1 tab PO Q4H PRN PRN Reason: Pain (moderate 4-6) Oxycodone/Acetaminophen (Percocet 325-5 Mg) 2 tab PO Q4H PRN PRN Reason: Pain (severe 7-10) Discontinued Medications Bupivacaine HCl (Marcaine 0.5%) Confirm Administered Dose 30 ml .ROUTE .STK-MED ONE Stop: 08/20/20 00:17 Last Admin: 08/20/20 00:50 Dose: 5 ml Documented by: Dexamethasone (Dexamethasone) Confirm Administered Dose 20 mg .ROUTE .STK-MED ONE Stop: 08/20/20 00:37 Fentanyl (Sublimaze) Confirm Administered Dose 250 mcg .ROUTE .STK-MED ONE Stop: 08/19/20 23:37 Glycopyrrolate (Robinul) Confirm Administered Dose 0.4 mg .ROUTE .STK-MED ONE Stop: 08/20/20 00:47 Hydromorphone HCl (Dilaudid) 0.5 mg IVPUSH ONETIME ONE Stop: 08/19/20 20:24 Last Admin: 08/19/20 20:36 Dose: 0.5 mg Documented by: Hydromorphone HCl (Dilaudid) 0.5 mg IVPUSH ONETIME ONE Stop: 08/19/20 23:56 Last Admin: 08/19/20 23:57 Dose: 0.5 mg Documented by: Hydromorphone HCl (Dilaudid) Confirm Administered Dose 0.5 mg .ROUTE .STK-MED ONE Stop: 08/19/20 23:57 Last Admin: 08/20/20 00:34 Dose: Not Given Documented by: Sodium Chloride (Normal Saline) 1,000 mls @ 150 mls/hr IV ASDIRECTED [facility] Last Infusion: 08/19/20 21:53 Dose: 999 mls/hr Documented by: Sodium Chloride (Normal Saline) 1,000 mls @ 999 mls/hr IV ONETIME ONE Stop: 08/19/20 22:45 Cefazolin Sodium/Dextrose 2 gm (/ Premix) 50 mls @ 100 mls/hr IV ONETIME ONE Stop: 08/19/20 23:12 Last Admin: 08/19/20 23:02 Dose: 100 mls/hr Documented by: Lidocaine HCl (Xylocaine-Mpf 1%) Confirm Administered Dose 4 mls @ as directed .ROUTE .STK-MED ONE Stop: 08/19/20 23:37 Lactated Ringer's (Ringers, Lactated) Confirm Administered Dose 1,000 mls @ as directed .ROUTE .STK-MED ONE Stop: 08/20/20 00:54 Ketorolac Tromethamine (Toradol) Confirm Administered Dose 30 mg .ROUTE .STK-MED ONE Stop: 08/20/20 01:21 Midazolam HCl (Versed 1 Mg/Ml) Confirm Administered Dose 2 mg .ROUTE .STK-MED ONE Stop: 08/19/20 23:37 Neostigmine Methylsulfate (Neostigmine Methylsulfate) Confirm Administered Dose 5 mg .ROUTE .STK-MED ONE Stop: 08/20/20 00:47 Ondansetron HCl (Zofran) 4 mg IVPUSH ONETIME ONE Stop: 08/19/20 20:24 Last Admin: 08/19/20 20:35 Dose: 4 mg Documented by: Ondansetron HCl (Zofran) Confirm Administered Dose 4 mg .ROUTE .STK-MED ONE Stop: 08/19/20 23:37 Propofol (Diprivan 20 Ml) Confirm Administered Dose 200 mg .ROUTE .STK-MED ONE Stop: 08/19/20 23:37 Rocuronium Colp (Zemuron) Confirm Administered Dose 50 mg .ROUTE .STK-MED ONE Stop: 08/19/20 23:37 - Exam Wound/Incisions: Healing Well, Dressing Dry and Intact General: Alert, Oriented, Cooperative Lungs: Clear to Auscultation, Normal Respiratory Effort Cardiovascular: Regular Rate, Regular Rhythm GI/Abdominal Exam: Soft, Tender (appropriate post op). No: Guarding, Rebound Extremities: Normal Inspection Sepsis Event Note - Evaluation Sepsis Screening Result: No Definite Risk - Focused Exam Vital Signs: Vital Signs Temp Resp BP Pulse Ox 08/20/20 05:00 37.6 C 14 99/51 L 100 08/20/20 04:16 14 104/46 L 95 08/20/20 03:46 14 104/47 L 97 08/20/20 03:31 14 100/49 L 98 08/20/20 03:16 14 102/50 L 98 08/20/20 03:01 36.4 C 14 106/49 L 96 08/20/20 02:26 36.6 C 14 107/60 100 08/20/20 02:18 36.5 C 14 106/52 L 100 08/20/20 02:08 36.4 C 12 110/65 100 08/20/20 01:54 36.3 C 11 L 108/54 L 100 08/20/20 01:48 14 100 08/20/20 01:40 36.7 C 15 118/75 100 - Problem List & Annotations (1) Ruptured ectopic SNOMED Code(s): 20324950 Code(s): O00.90 - UNSPECIFIED ECTOPIC WITHOUT INTRAUTERINE Status: Acute - Problem List Review Problem List Initiated/Reviewed/Updated: Yes - My Orders Last 24 Hours: Active Orders 24 hr Category Date Time Status Admission Status [Patient Status] [ADT] Routine ADT 08/19/20 22:06 Active Communication Order [RC] ASDIRECTED Care 08/20/20 00:55 Active Cooling Warming Measures [RC] ASDIRECTED Care 08/20/20 00:55 Active Orthostatic Vital Signs [RC] STAT Care 08/19/20 20:27 Active Oxygen Therapy [RC] ASDIRECTED Care 08/20/20 00:55 Active Pulse Oximetry [RC] ASDIRECTED Care 08/20/20 00:55 Active Up ad Kelly [RC] PER UNIT ROUTINE Care 08/20/20 01:45 Active Verify Patient Consent Obtain [RC] PER UNIT ROUTINE Care 08/19/20 22:43 Active Vital Signs [RC] PER UNIT ROUTINE Care 08/20/20 01:44 Active Nothing Per Oral Diet [DIET] Diet 08/19/20 Dinner Active Regular Diet [DIET] Diet 08/20/20 Breakfast Active Transvaginal Non OB [US] Stat Exams 08/19/20 20:22 Taken CBC W/O DIFF,HEMOGRAM [HEME] Timed Lab 08/20/20 07:00 Ordered HCG QUANTITATIVE [CHEM] DAILY Lab 08/20/20 07:00 Ordered Acetaminophen/oxyCODONE [Percocet 325-5 MG] Med 08/20/20 01:44 Active 1 tab PO Q4H PRN Acetaminophen/oxyCODONE [Percocet 325-5 MG] Med 08/20/20 01:44 Active 2 tab PO Q4H PRN HYDROmorphone [Dilaudid] Med 08/20/20 00:55 Active 0.5 mg IVPUSH Q10M PRN Ketorolac [Toradol] Med 08/20/20 08:00 Active 30 mg IVPUSH Q6H Lactated Ringers [Ringers, Lactated] 1,000 ml Med 08/19/20 23:00 Active IV ASDIRECTED Ondansetron [Zofran] Med 08/20/20 00:55 Active 4 mg IVPUSH ONETIME PRN Ondansetron [Zofran] Med 08/20/20 01:44 Active 4 mg IVPUSH Q4H PRN fentaNYL [Sublimaze] Med 08/20/20 00:55 Active 50 mcg IVPUSH Q5M PRN Schedule Procedure [COMM] Stat Oth 08/19/20 22:06 Ordered Resuscitation Status Routine Resus Stat 08/20/20 01:44 Ordered Medication Orders Fentanyl (Sublimaze) 50 mcg IVPUSH Q5M PRN PRN Reason: Pain Hydromorphone HCl (Dilaudid) 0.5 mg IVPUSH Q10M PRN PRN Reason: Pain (severe 7-10) Lactated Ringer's (Ringers, Lactated) 1,000 mls @ 75 mls/hr IV ASDIRECTED [facility] Last Admin: 08/19/20 23:02 Dose: 75 mls/hr Documented by: BRINDA Ketorolac Tromethamine (Toradol) 30 mg IVPUSH Q6H [facility] Stop: 08/25/20 01:45 Ondansetron HCl (Zofran) 4 mg IVPUSH ONETIME PRN PRN Reason: Nausea/Vomiting Ondansetron HCl (Zofran) 4 mg IVPUSH Q4H PRN PRN Reason: Nausea/Vomiting Oxycodone/Acetaminophen (Percocet 325-5 Mg) 1 tab PO Q4H PRN PRN Reason: Pain (moderate 4-6) Oxycodone/Acetaminophen (Percocet 325-5 Mg) 2 tab PO Q4H PRN PRN Reason: Pain (severe 7-10) - Assessment Assessment (Free Text/Narrative):: POD#0 - Plan Plan (Free Text/Narrative):: * Patient starting Hb yesterday 12.2. This AM down to 7.8 which is consistent with 1L hemoperitoneum noted at surgery. Relatively asymptomatic. Iron on discharge * Patient with what was thought to be more of a ruptured ovarian ectopic with not a lot of tissue noted to be excised. HCG yesterday 7,900 and now down to 3,900. This seems like an appropriate drop. Will repeat in clinic next week when presents for post op check * Rx for percocet for pain * Work excuse letter given for next 2 days * Follow up next week
--- NOTE | 2020-08-20 08:33 | US ---
Pelvic ultrasound: Multiple real-time images were obtained transvaginally. Findings: Uterus shows endometrial thickness of about 7 mm. No intrauterine gestational sac is seen. There appears to be a soft tissue abnormality posterior to the uterus extending to right and left sides. This finding measures approximately 9.3 x 3.4 x 8.6 cm. This could represent solid mass as well as hematoma. Hematoma felt most likely due to elevated hCG raising the possibility of ruptured ectopic . Ovaries are not optimally seen but grossly unremarkable. Impression: 1. Large abnormality posteriorly within the pelvis which may represent mass or hematoma. Hematoma is felt more likely due to ruptured ectopic due to elevated hCG. 2. No intrauterine gestational sac is seen. Diagnostic code #5 Mildly disagree with preliminary report from [facility], finalized on 08/19/20, 10:44 PM [facility]
== END 2020-08-20 10:00 | disposition home or self-care (01) ==
LOC: JD.ED 19:32 → JD.SDS 22:08 → JD.OB 08-20 02:44 → JD.SDS 08-20 10:00
PROVIDERS: ATTEND Obstetrics & Gynecology
DX: O00.201 Right ovarian pregnancy without intrauterine pregnancy (principal); Z88.1 Allergy status to other antibiotic agents; Z88.2 Allergy status to sulfonamides
CPT/HCPCS: 36415; 59150; 76830; 80053; 81001; 83735; 84702; 85007; 85027; 86850; 86900; 86901; 96361; 96365; 96375; 96376; 99285; J0690; J1100; J1170; J1885; J2001; J2250; J2405; J2704; J2710; J3010; J3490; J7030; J7120; 00840

== ENCOUNTER 2023-08-01 03:21 | Inpatient (IN) | payer BC, OTHER ==
[~2023-08-01 03:21] MED LIST: Lidocaine 1% 10 ML MDV ONE
[2023-08-01] MEDS ORDERED: Sodium Chloride 0.9% 10 ML Syringe FLUSH PRN (17:35)
[2023-08-01] MEDS ORDERED: Nalbuphine HCl 10 MG/ 1ML Amp IVPUSH PRN (17:35)
[2023-08-01] MEDS ORDERED: ceFAZolin 2 GM in Sodium Chloride 0.9% 50 ML IV ONE ×2 (17:35→18:15)
[2023-08-01] MEDS ORDERED: Ondansetron 4 MG/2 ML SDV IVPUSH PRN (17:35)
[2023-08-01] MEDS ORDERED: Lidocaine 1% 50 ML MDV INJECT PRN (17:35)
[2023-08-01] MEDS ORDERED: Acetaminophen 325 MG Tab PO PRN (17:35)
[2023-08-01 18:01] LABS: BASOPHILS PERCENT AUTO 0.3 % (0.0-1.0); EOSINOPHILS ABSOLUTE AUTO 0.1 K/mm3 (0.0-0.4); EOSINOPHILS PERCENT AUTO 0.5 % (0.0-6.0); HEMATOCRIT 36.1 % (37.0-47.0); HEMOGLOBIN 12.5 gm/dl (12.0-16.0); IMMATURE GRAN ABSOLUTE AUTO 0.06 K/mm3 (0.00-0.05); IMMATURE GRAN PERCENT AUTO 0.5 % (0.0-0.4); LYMPHOCYTES ABSOLUTE AUTO 1.8 K/mm3 (1.0-4.8); LYMPHOCYTES PERCENT AUTO 15.3 % (24.0-44.0); MEAN CORPUSCULAR HGB CONC 34.6 g/dl (32.0-36.0); MEAN CORPUSCULAR VOLUME 95.3 fl (83.0-99.0); MEAN PLATELET VOLUME 10.8 fl (9.4-12.3); MONOCYTES ABSOLUTE AUTO 0.8 K/mm3 (0.0-0.8); MONOCYTES PERCENT AUTO 6.8 % (0.0-8.0); NEUTROPHILS ABSOLUTE AUTO 9.1 K/mm3 (1.8-7.7); NEUTROPHILS PERCENT AUTO 76.6 % (41.0-71.0); PLATELET COUNT,PLT 221 K/mm3 (150-400); RED BLOOD CELL COUNT 3.79 M/mm3 (4.10-5.30); WHITE BLOOD CELL COUNT,WBC 11.93 K/mm3 (3.9-11.3)
[2023-08-01] MEDS: Lactated Ringers 1,000 ML IV SCH ×2 (18:06→19:52)
[2023-08-01] MEDS ORDERED: fentaNYL 100 MCG/2 ML SDV EPIDUR PRN (18:09)
[2023-08-01] MEDS ORDERED: diphenhydrAMINE 50 MG/ML SDV IVPUSH PRN (18:09)
[2023-08-01] MEDS ORDERED: ePHEDrine 50 MG/ML SDV IVPUSH PRN (18:09)
[2023-08-01] MEDS: Bupivacaine/fentaNYL/NS 100 ML Bag EPIDUR PRN (18:59)
[2023-08-01] MEDS ORDERED: Sodium Chloride 0.9% 10 ML Syringe FLUSH SCH (21:00)
[2023-08-01] MEDS ORDERED: Oxytocin/Lactated Ringers 30 UNIT/500 ML BAG IV SCH (22:45)
[2023-08-02] MEDS: Bupivacaine/fentaNYL/NS 100 ML Bag EPIDUR PRN (01:40)
[2023-08-02] MEDS ORDERED: ceFAZolin 1 GM in Sodium Chloride 0.9% 100 ML IV SCH (02:00)
[2023-08-02] MEDS ORDERED: Docusate Sodium 100 MG Cap PO PRN (04:24)
[2023-08-02] MEDS ORDERED: Benzocaine/Menthol 20%-0.5% Spray 78 GM Cannister TOP PRN (04:24)
[2023-08-02] MEDS ORDERED: Acetaminophen 325 MG Tab PO PRN (04:24)
[2023-08-02] MEDS ORDERED: Witch Hazel Medicated Pads 40/Jar TOP PRN (04:24)
[2023-08-02] MEDS: Ibuprofen 600 MG Tab PO PRN ×3 (04:47→22:12)
[2023-08-03] MEDS ORDERED: Measles, Mumps & Rubella Vaccine 0.5 ML SDV SUBCUT ONE (07:08)
== END 2023-08-03 12:45 | disposition home or self-care (01) | DRG 560 ==
LOC: JD.OB 03:21 → OBSVTOIN 08-02 03:21 → JD.OB 08-02 03:22
PROVIDERS: ADMIT Obstetrics & Gynecology; ATTEND Obstetrics & Gynecology
PROC: 10D07Z6 Extraction of Products of Conception, Vacuum, Via Natural or Artificial Opening (ICD-10-PCS; principal; 2023-08-02)
PROC: 3E0R3BZ Introduction of Anesthetic Agent into Spinal Canal, Percutaneous Approach (ICD-10-PCS; 2023-08-02)
PROC: 00HU33Z Insertion of Infusion Device into Spinal Canal, Percutaneous Approach (ICD-10-PCS; 2023-08-02)
PROC: 0KQM0ZZ Repair Perineum Muscle, Open Approach (ICD-10-PCS; 2023-08-02)
DX: O75.81 Maternal exhaustion complicating labor and delivery (principal); O99.824 Streptococcus B carrier state complicating childbirth; O70.1 Second degree perineal laceration during delivery; Z37.0 Single live birth; Z3A.38 38 weeks gestation of pregnancy; Z88.0 Allergy status to penicillin; Z88.2 Allergy status to sulfonamides
CPT/HCPCS: 36415; 51701; 51702; 59025; 59409; 85025; 86592; 86850; 86900; 86901; 90707; A9270-GY; J0690; J3010; J3490; J7120; J7999